=== PATIENT | female | born 1985 | race Caucasian/White ===

== ENCOUNTER 2017-07-01 17:58 | Emergency (ER) | payer OTHER ==
[~2017-07-01] VITALS: Ht 165.1 cm; Wt 49.0 kg
[~2017-07-01 17:58] MED LIST: HYDR-971 PO
--- NOTE | 2017-07-01 18:47 | PHYS DOC ---
Past Medical History Past Medical History: Anxiety, Bipolar, Other Additional Past Medical Histor: PSORIASIS, CHRONIC BACK PAIN Past Surgical History: , Tubal ligation, Other Additional Past Surgical Histo: D&C Additional Information: LESS THAN 1/2 PACK A DAY Alcohol Use: None Drug Use: None Adult General Chief Complaint Chief Complaint: ABDOMINAL PAIN HPI HPI Patient is a 32 year old female who presents with complaints of low abdominal pain that started approximately 3 hours before arrival to the ED. Pain started after she ate a meal sheet I will get better if she slept but he didn't improve so she come to the ER. Patient denies any fevers, chills, rashes, sick contacts , trauma, dysuria symptoms, vaginal discharge. Patient is not in any new medications, denies any drug use. Patient has been her usual state of health up until today. Review of Systems Review of Systems Constitutional: Denies fever or chills [] HENT: Denies pain Respiratory: Denies cough or shortness of breath [] Cardiovascular: No chest pain GI: Denies nausea, vomiting, bloody stools or diarrhea. Yes to low abdominal pain : Denies dysuria or hematuria or vaginal discharge Musculoskeletal: Denies back pain or joint pain [] Integument: Denies rash or skin lesions [] Neurologic: Denies headache, focal weakness or sensory changes [] Current Medications Current Medications Current Medications Medications (Trade) Dose Ordered Sig/Lars Start Time Stop Time Status Last Admin Dose Admin Ketorolac Tromethamine (Toradol) 30 mg 1X ONCE 07/01/17 19:45 07/01/17 19:46 DC 07/01/17 19:49 30 MG Allergies Allergies Allergies Coded Allergies Type Severity Reaction Last Updated Verified Latex, Natural Rubber Allergy Intermediate 12/22/15 Yes Physical Exam Physical Exam Constitutional: Well developed, well nourished, no acute distress, non-toxic appearance. [] HENT: Normocephalic, atraumatic, bilateral external ears normal, oropharynx moist, no oral exudates, nose normal. Poor dentition diffusely Eyes: EOMI, conjunctiva normal, no discharge. [] Neck: Normal range of motion, no tenderness, trachea midline, no stridor. [] Cardiovascular:Heart rate regular rhythm, no murmur, equal pulses, normal perfusion Lungs & Thorax: Bilateral breath sounds clear to auscultation, no tachypnea Abdomen: Bowel sounds normal, soft, no tenderness, no masses, no pulsatile masses. No significant discomfort elicited from a manual exam, no guarding, no rebound Skin: Warm, dry, no erythema, no rash. [] Back: No tenderness, no CVA tenderness. [] Extremities: No tenderness, no cyanosis,, ROM intact, no edema. [] Neurologic: Alert and oriented X 3, normal motor function, no focal deficits noted. [] Psychologic: Affect normal, judgement normal, mood normal. [] Current Patient Data Vital Signs Vital Signs Date Time Temp Pulse Resp B/P (MAP) Pulse Ox O2 Delivery O2 Flow Rate FiO2 07/01/17 19:52 64 18 117/79 (92) 100 Room Air 07/01/17 18:10 98.2 98.2 Lab Values Laboratory Tests Test 07/01/17 18:03 07/01/17 18:15 07/01/17 18:20 Urine Collection Type Void Urine Color Yellow Urine Clarity Clear Urine pH 7.5 Urine Specific [place] 1.020 Urine Protein Negative mg/dL (NEG-TRACE) Urine Glucose (UA) Negative mg/dL (NEG) Urine Ketones (Stick) Negative mg/dL (NEG) Urine Blood Negative (NEG) Urine Nitrite Negative (NEG) Urine Bilirubin Negative (NEG) Urine Urobilinogen Dipstick 0.2 mg/dL (0.2 mg/dL) Urine Leukocyte Esterase Negative (NEG) Urine RBC 0 /HPF (0-2) Urine WBC 1-4 /HPF (0-4) Urine Squamous Epithelial Cells Few /LPF Urine Amorphous Sediment Present /HPF Urine Bacteria Few /HPF (0-FEW) Urine Mucus Slight /LPF Urine Opiates Screen Neg (NEG) Urine Methadone Screen Neg (NEG) Urine Barbiturates Neg (NEG) Urine Phencyclidine Screen Neg (NEG) Urine Amphetamine/Methamphetamine Neg (NEG) Urine Benzodiazepines Screen Neg (NEG) Urine Cocaine Screen Neg (NEG) Urine Cannabinoids Screen Neg (NEG) Urine Ethyl Alcohol Neg (NEG) POC Urine HCG, Qualitative Hcg negative (Negative) White Blood Count 23.5 x10^3/uL (4.0-11.0) H Red Blood Count 4.36 x10^6/uL (3.50-5.40) Hemoglobin 13.4 g/dL (12.0-15.5) Hematocrit 40.6 % (36.0-47.0) Mean Corpuscular Volume 93 fL (79-100) Mean Corpuscular Hemoglobin 31 pg (25-35) Mean Corpuscular Hemoglobin Concent 33 g/dL (31-37) Red Cell Distribution Width 15.8 % (11.5-14.5) H Platelet Count 333 x10^3/uL (140-400) Neutrophils (%) (Auto) 80 % (31-73) H Lymphocytes (%) (Auto) 14 % (24-48) L Monocytes (%) (Auto) 5 % (0-9) Eosinophils (%) (Auto) 0 % (0-3) Basophils (%) (Auto) 1 % (0-3) Neutrophils # (Auto) 18.8 x10^3uL (1.8-7.7) H Lymphocytes # (Auto) 3.3 x10^3/uL (1.0-4.8) Monocytes # (Auto) 1.1 x10^3/uL (0.0-1.1) Eosinophils # (Auto) 0.1 x10^3/uL (0.0-0.7) Basophils # (Auto) 0.2 x10^3/uL (0.0-0.2) Sodium Level 137 mmol/L (136-145) Potassium Level 3.8 mmol/L (3.5-5.1) Chloride Level 101 mmol/L (98-107) Carbon Dioxide Level 26 mmol/L (21-32) Anion Gap 10 (6-14) Blood Urea Nitrogen 8 mg/dL (7-20) Creatinine 0.7 mg/dL (0.6-1.0) Estimated GFR (Cockcroft-Gault) 98.3 BUN/Creatinine Ratio 11 (6-20) Glucose Level 94 mg/dL (70-99) Calcium Level 9.2 mg/dL (8.5-10.1) Total Bilirubin 0.5 mg/dL (0.2-1.0) Aspartate Amino Transferase (AST) 14 U/L (15-37) L Alanine Aminotransferase (ALT) 18 U/L (14-59) Alkaline Phosphatase 61 U/L (46-116) Total Protein 8.0 g/dL (6.4-8.2) Albumin 4.1 g/dL (3.4-5.0) Albumin/Globulin Ratio 1.1 (1.0-1.7) Laboratory Tests 07/01/17 18:20 Laboratory Tests 07/01/17 18:20 Microbiology 07/01/17 Wet Prep - Final, Complete EKG EKG [] Radiology/Procedures Radiology/Procedures [] Course & Med Decision Making Course & Med Decision Making Pertinent Labs and Imaging studies reviewed. (See chart for details) 2107 I have discussed the findings with the patient including the elevated white count. Patient's vital signs at this time are within normal limits, patient still not displaying any signs of a surgical abdomen. Based on the exam and the vital signs are on believed that the patient is in immediate need of imaging or inpatient evaluation at the time of this ED visit. Strict return precautions have been discussed with the patient progress to follow up as directed [] Dragon Disclaimer Dragon Disclaimer This electronic medical record was generated, in whole or in part, using a voice recognition dictation system. Departure Departure Impression: Primary Impression: Pelvic pain Additional Impressions: Abdominal pain Leukocytosis Disposition: 01 HOME, SELF-CARE Condition: STABLE Referrals: NO PCP (PCP) Please follow-up with your doctor or one of the clinics in the list provided to you for recheck and reevaluation in 2 days. If your symptoms worsen or new concerning symptoms develop please return to the ED immediately Patient Instructions: Abdominal Pain (Nonspecific), Leukocytosis, Pelvic Pain, Female, [id number] Scripts Hyoscyamine Sulfate (LEVSIN) 0.125 Mg Tablet 1 TAB PO TID for 7 Days, #21 TAB 1 Refill Prov: Hue KASPER MD 07/01/17 Naproxen (NAPROXEN) 375 Mg Tablet 1 TAB PO TID for 7 Days, #21 TAB 5 Refills Prov: Hue KASPER MD 07/01/17 Problem Qualifiers Hue KASPER MD Jul 01, 2017 18:47
[2017-07-01 18:53] LABS: BASO # 0.2 x10^3/uL (0.0-0.2); BASO % 1 % (0-3); EOS % 0 % (0-3); HEMATOCRIT 40.6 % (36.0-47.0); HEMOGLOBIN 13.4 g/dL (12.0-15.5); LYMPH # 3.3 x10^3/uL (1.0-4.8); LYMPH % 14 % (24-48); MEAN CORPUSCULAR HEMOGLOBIN 31 pg (25-35); MEAN CORPUSCULAR HGB CONC 33 g/dL (31-37); MEAN CORPUSCULAR VOLUME 93 fL (79-100); MONO % 5 % (0-9); NEUT % 80 % (31-73); PLATELET COUNT 333 x10^3/uL (140-400); RED BLOOD COUNT 4.36 x10^6/uL (3.50-5.40); RED CELL DISTRIBUTION WIDTH 15.8 % (11.5-14.5); WHITE BLOOD COUNT 23.5 x10^3/uL (4.0-11.0)
[2017-07-01 19:00] LABS: BARBITURATES NEG (NEG); BENZODIAZEPINES NEG (NEG); CANNABINOIDS NEG (NEG); COCAINE NEG (NEG); METHADONE NEG (NEG); OPIATES NEG (NEG); PHENCYCLIDINE NEG (NEG)
[2017-07-01 19:05] LABS: BILIRUBIN,URINE NEGATIVE (NEG); GLUCOSE,URINE NEGATIVE (NEG); NITRITE,URINE NEGATIVE (NEG); PH,URINE 7.5; PROTEIN,URINE NEGATIVE (NEG-TRACE); UROBILINOGEN,URINE 0.2 mg/dL (0.2 mg/dL)
[2017-07-01 19:11] LABS: CALCIUM 9.2 mg/dL (8.5-10.1); CREATININE 0.7 mg/dL (0.6-1.0); GFR 98.3; POTASSIUM 3.8 mmol/L (3.5-5.1)
[2017-07-01 19:16] LABS: ALBUMIN 4.1 g/dL (3.4-5.0); ALBUMIN/GLOBULIN RATIO 1.1 (1.0-1.7); TOTAL BILIRUBIN 0.5 mg/dL (0.2-1.0)
[2017-07-01 19:19] LABS: BACTERIA,URINE FEW /HPF (0-FEW); RBC,URINE 0 /HPF (0-2); SQUAMOUS EPITHELIAL CELL,UR FEW /LPF
[2017-07-01] MEDS ORDERED: KETOROLAC 30 MG/ML INJ. IV ONE (19:45)
[2017-07-01] MEDS ORDERED: NAPR-695 PO (21:14)
[2017-07-01] MEDS ORDERED: HYOS0.1264 PO (21:14)
[2017-07-01 21:20] VITALS: BP 113/72
== END 2017-07-01 21:29 | disposition home or self-care (01) ==
LOC: ER 17:58
DX: R10.30 Lower abdominal pain, unspecified (principal); D72.829 Elevated white blood cell count, unspecified; R10.2 Pelvic and perineal pain; L40.9 Psoriasis, unspecified; G89.29 Other chronic pain; F31.9 Bipolar disorder, unspecified; F17.200 Nicotine dependence, unspecified, uncomplicated; Z91.040 Latex allergy status
CPT/HCPCS: 36415; 80053; 80307; 81001; 81025; 85025; 87491; 87591; 96374; 99284; J1885; Q0111; G0479

== ENCOUNTER 2017-11-27 13:09 | Emergency (ER) | payer OTHER ==
[2017-11-27 13:39] LABS: URINE HCG POC HCG NEGATIVE (Negative)
[2017-11-27 13:48] LABS: CLARITY,URINE TURBID; COLOR,URINE RED; GLUCOSE,URINE NEGATIVE (NEG); NITRITE,URINE NEGATIVE (NEG); PH,URINE 5.5; PROTEIN,URINE >=300 mg/dL (NEG-TRACE)
[2017-11-27 13:58] LABS: BILIRUBIN,URINE NEGATIVE (NEG)
[2017-11-27 14:00] LABS: UROBILINOGEN,URINE 0.2 mg/dL (0.2 mg/dL)
[2017-11-27 14:01] LABS: BACTERIA,URINE MANY /HPF (0-FEW); RBC,URINE TNTC /HPF (0-2); SQUAMOUS EPITHELIAL CELL,UR MOD /LPF; WBC,URINE TNTC /HPF (0-4)
== END 2017-11-27 14:09 | disposition home or self-care (01) ==
LOC: ER 13:09
DX: N39.0 Urinary tract infection, site not specified (principal); G89.29 Other chronic pain; F10.10 Alcohol abuse, uncomplicated; F31.9 Bipolar disorder, unspecified; Z98.51 Tubal ligation status; Z91.040 Latex allergy status
CPT/HCPCS: 81001; 81025; 87086; 99284

== ENCOUNTER 2018-03-11 16:10 | Emergency (ER) | payer OTHER ==
[2018-03-11 16:40] LABS: URINE HCG POC HCG NEGATIVE (Negative)
[2018-03-11 16:42] LABS: BILIRUBIN,URINE NEGATIVE (NEG); CLARITY,URINE CLEAR; COLOR,URINE YELLOW; GLUCOSE,URINE NEGATIVE (NEG); NITRITE,URINE NEGATIVE (NEG); PH,URINE 5.5; PROTEIN,URINE NEGATIVE (NEG-TRACE); UROBILINOGEN,URINE 0.2 mg/dL (0.2 mg/dL)
[2018-03-11 17:03] LABS: BACTERIA,URINE FEW /HPF (0-FEW); RBC,URINE >40 /HPF (0-2); SQUAMOUS EPITHELIAL CELL,UR FEW /LPF
[2018-03-11] MEDS: ONDANSETRON PF 4 MG/2 ML VIAL. IV (17:06)
[2018-03-11] MEDS: IV NORMAL SALINE 1000ML BAG 1,000 ML IV ×2 (17:07→18:11)
[2018-03-11 17:15] LABS: ADD MAN DIFF? NO
[2018-03-11 17:16] LABS: BASO # 0.1 x10^3/uL (0.0-0.2); BASO % 1 % (0-3); EOS % 0 % (0-3); HEMATOCRIT 36.7 % (36.0-47.0); HEMOGLOBIN 12.5 g/dL (12.0-15.5); LYMPH # 1.3 x10^3/uL (1.0-4.8); LYMPH % 7 % (24-48); MEAN CORPUSCULAR HEMOGLOBIN 30 pg (25-35); MEAN CORPUSCULAR HGB CONC 34 g/dL (31-37); MEAN CORPUSCULAR VOLUME 90 fL (79-100); MONO # 0.5 x10^3/uL (0.0-1.1); MONO % 3 % (0-9); NEUT # 16.7 x10^3uL (1.8-7.7); NEUT % 89 % (31-73); PLATELET COUNT 167 x10^3/uL (140-400); RED BLOOD COUNT 4.09 x10^6/uL (3.50-5.40); RED CELL DISTRIBUTION WIDTH 17.3 % (11.5-14.5); WHITE BLOOD COUNT 18.7 x10^3/uL (4.0-11.0)
[2018-03-11 17:26] LABS: ANION GAP 19 (6-14); BLOOD UREA NITROGEN 7 mg/dL (7-20); BUN/CREATININE RATIO 12 (6-20); CALCIUM 9.1 mg/dL (8.5-10.1); CARBON DIOXIDE 21 mmol/L (21-32); CHLORIDE 94 mmol/L (98-107); CREATININE 0.6 mg/dL (0.6-1.0); GFR 117.4; GLUCOSE 72 mg/dL (70-99); POTASSIUM 3.7 mmol/L (3.5-5.1); SODIUM 134 mmol/L (136-145)
[2018-03-11 17:32] LABS: ALBUMIN 4.2 g/dL (3.4-5.0); ALBUMIN/GLOBULIN RATIO 1.2 (1.0-1.7); ALK PHOS 69 U/L (46-116); ALT (SGPT) 37 U/L (14-59); AST (SGOT) 80 U/L (15-37); LIPASE 155 U/L (73-393); TOTAL BILIRUBIN 1.4 mg/dL (0.2-1.0); TOTAL PROTEIN 7.8 g/dL (6.4-8.2)
[2018-03-11 18:01] LABS: CREATINE KINASE 189 U/L (26-192)
== END 2018-03-11 19:50 | disposition home or self-care (01) ==
LOC: ER 16:10
DX: R11.2 Nausea with vomiting, unspecified (principal); F41.9 Anxiety disorder, unspecified; F31.9 Bipolar disorder, unspecified; F10.20 Alcohol dependence, uncomplicated; Z98.890 Other specified postprocedural states; Z98.51 Tubal ligation status; Z91.040 Latex allergy status
CPT/HCPCS: 36415; 80053; 81001; 81025; 82550; 83690; 85025; 96361; 96374; 96375; 99285-25; J2060; J2405; J7030

== ENCOUNTER 2019-05-26 15:48 | Emergency (ER) | payer OTHER ==
[~2019-05-26] VITALS: Ht 165.1 cm; Wt 55.8 kg
[~2019-05-26 15:48] MED LIST changes: +HYDR-3164 PO; -HYDR-971 PO; +HYOS0.1264 PO; +NAPR-695 PO; +SULF1TAB24 PO
[2019-05-26 15:57] VITALS: BP 156/78
--- NOTE | 2019-05-26 16:10 | PHYS DOC ---
Past Medical History Past Medical History: Anxiety, Bipolar, Other Additional Past Medical Histor: PSORIASIS, CHRONIC BACK PAIN Past Surgical History: , Tubal ligation, Other Additional Past Surgical Histo: D&C Alcohol Use: Heavy Drug Use: None Adult General Chief Complaint Chief Complaint: WRIST PAIN [facility] HPI Patient is a 34 year old female presents to the ED complaining of left wrist injury times one day ago. States she tripped and fell landing on her left wrist. Describes the pain as sharp. Rates the pain as 7 out of 10. Patient has pain with range of motion. History of old fracture many years ago. Denies head/neck injury, LOC, vision changes, nausea/vomiting, dizziness, weakness, chest pain or shortness of breath. Review of Systems Review of Systems Constitutional: Denies fever or chills [] Eyes: Denies change in visual acuity, redness, or eye pain [] HENT: Denies nasal congestion or sore throat [] Respiratory: Denies cough or shortness of breath [] Cardiovascular: No additional information not addressed in HPI [] GI: Denies abdominal pain, nausea, vomiting, bloody stools or diarrhea [] : Denies dysuria or hematuria [] Musculoskeletal: Complains of left wrist pain. Denies back pain. Integument: Denies rash or skin lesions [] Neurologic: Denies headache, focal weakness or sensory changes [] All other systems were reviewed and found to be within normal limits, except as documented in this note. Allergies Allergies Allergies Coded Allergies Type Severity Reaction Last Updated Verified Latex, Natural Rubber Allergy Intermediate 12/22/15 Yes Physical Exam Physical Exam Constitutional: Well developed, well nourished, no acute distress, non-toxic appearance. [] HENT: Normocephalic, atraumatic Skin: Warm, dry, no erythema, no rash. [] Back: No tenderness, no CVA tenderness. [] Extremities: mild left wrist tenderness, no swelling or snuffbox tenderness. no cyanosis, no clubbing, ROM intact, no edema. [] Neurologic: Alert and oriented X 3, normal motor function, normal sensory function, no focal deficits noted. [] Psychologic: Affect normal, judgement normal, mood normal. [] Current Patient Data Vital Signs Vital Signs Date Time Temp Pulse Resp B/P (MAP) Pulse Ox O2 Delivery O2 Flow Rate FiO2 05/26/19 15:57 99.2 86 14 156/78 (104) 99 Room Air 99.2 EKG EKG [] Radiology/Procedures Radiology/Procedures []PROCEDURE: WRIST 3V LEFT EXAM: Left wrist, 3 views. HISTORY: Trauma. COMPARISON: None. FINDINGS: 3 views of the left wrist are obtained. There is a tiny ossicle adjacent to the ulnar styloid, likely developmental or the sequela of remote fracture. There is a bone island within the distal radial metaphysis. No acute fracture is seen. IMPRESSION: No acute osseous finding. Course & Med Decision Making Course & Med Decision Making Pertinent Labs and Imaging studies reviewed. (See chart for details) []Discussed imaging findings with patient. Patients pain improved in the ED. No acute fracture seen. Discussed symptomatic treatment and follow-up with orthopedics if pain persists. Provided contact information/education. Discussed reasons to return to the ED. Patient understands and agrees with plan. Dragon Disclaimer Dragon Disclaimer This electronic medical record was generated, in whole or in part, using a voice recognition dictation system. Departure Departure Impression: Primary Impression: Wrist sprain Disposition: 01 HOME, SELF-CARE Condition: IMPROVED Referrals: PIERO LINN MD (PCP) Patient Instructions: Joint Sprain MINGO CAREY May 26, 2019 16:10
--- NOTE | 2019-05-26 16:53 | RAD ---
EXAM: Left wrist, 3 views. HISTORY: Trauma. COMPARISON: None. FINDINGS: 3 views of the left wrist are obtained. There is a tiny ossicle adjacent to the ulnar styloid, likely developmental or the sequela of remote fracture. There is a bone island within the distal radial metaphysis. No acute fracture is seen. IMPRESSION: No acute osseous finding. Electronically signed by: Natali Rand MD (05/26/2019 4:50 PM) [facility]
== END 2019-05-26 17:22 | disposition home or self-care (01) ==
LOC: ER 15:48
DX: S63.592A Other specified sprain of left wrist, initial encounter (principal); F10.20 Alcohol dependence, uncomplicated; Y90.9 Presence of alcohol in blood, level not specified; F41.9 Anxiety disorder, unspecified; F31.9 Bipolar disorder, unspecified; G89.29 Other chronic pain; Z98.890 Other specified postprocedural states; Z98.51 Tubal ligation status; Z91.040 Latex allergy status; W01.0XXA Fall on same level from slipping, tripping and stumbling without subsequent striking against object, initial encounter; Y93.89 Activity, other specified; Y92.89 Other specified places as the place of occurrence of the external cause; Y99.8 Other external cause status
CPT/HCPCS: 73110; 99284

== ENCOUNTER 2019-11-02 13:28 | Emergency (ER) | payer OTHER ==
[~2019-11-02] VITALS: Ht 162.6 cm; Wt 48.0 kg
[2019-11-02 13:50] VITALS: BP 132/76
[2019-11-02] MEDS ORDERED: PENI500T PO (14:35)
[2019-11-02] MEDS ORDERED: HYDR-3164 PO (14:35)
[2019-11-02] MEDS ORDERED: CHLO15MO2 PO (14:35)
--- NOTE | 2019-11-02 14:35 | PHYS DOC ---
Past Medical History Past Medical History: Anxiety, Bipolar, Other Additional Past Medical Histor: PSORIASIS, CHRONIC BACK PAIN Past Surgical History: , Tubal ligation, Other Additional Past Surgical Histo: D&C Smoking Status: Current Every Day Smoker Alcohol Use: Heavy Drug Use: None Adult General Chief Complaint Chief Complaint: DENTAL PROBLEM HPI HPI Patient is a 34 year old female who presents with patient went to [facility] and had 4 upper teeth removed removed on the right upper back. She states that she does not have another appointment on November 10 cannot get in any sooner. She states that this was about 4 days ago and she's having continuous pain. She states she's taken all for hydrocodone's. She rates her pain 9 out of 10. Review of Systems Review of Systems HENT: Denies nasal congestion or sore throat. Dental pain post removal of teeth. [] All other systems were reviewed and found to be within normal limits, except as documented in this note. Allergies Allergies Allergies Coded Allergies Type Severity Reaction Last Updated Verified Latex, Natural Rubber Allergy Intermediate 12/22/15 Yes Physical Exam Physical Exam Constitutional: Well developed, well nourished, no acute distress, non-toxic appearance. [] HENT: Normocephalic, atraumatic, bilateral external ears normal, oropharynx moist, no oral exudates, nose normal. Gumline inflammation and tenderness per post dental teeth removal. [] Eyes: PERRLA, EOMI, conjunctiva normal, no discharge. [] Neck: Normal range of motion, no tenderness, supple, no stridor. [] Cardiovascular:Heart rate regular rhythm, no murmur [] Lungs & Thorax: Bilateral breath sounds clear to auscultation [] Abdomen: Bowel sounds normal, soft, no tenderness, no masses, no pulsatile masses. [] Skin: Warm, dry, no erythema, no rash. [] Back: No tenderness, no CVA tenderness. [] Extremities: No tenderness, no cyanosis, no clubbing, ROM intact, no edema. [] Neurologic: Alert and oriented X 3, normal motor function, normal sensory function, no focal deficits noted. [] Psychologic: Affect normal, judgement normal, mood normal. [] Current Patient Data Vital Signs Vital Signs Date Time Temp Pulse Resp B/P (MAP) Pulse Ox O2 Delivery O2 Flow Rate FiO2 11/02/19 13:50 98.2 90 14 132/76 (94) 100 Room Air 98.2 EKG EKG [] Radiology/Procedures Radiology/Procedures [] Course & Med Decision Making Course & Med Decision Making Pertinent Labs and Imaging studies reviewed. (See chart for details) Alert and oriented. Speaks in full clear senses. Vital signs within normal limits. Afebrile. Upon examination there is no blood clots in the sockets within the gumline where the 4 teeth were pulled that there is complaining inflammation but there is no drainage. There is tenderness. Patient states she's been following the directions appropriately and she's been doing salt water rinses 7 times a day. And they told her to also use mouthwash. And has many dental caries and rotting teeth. She has many missing teeth. Patient has a possible dry socket. Patient is educated that she needs to get in to see [facility] sooner. She is given antibiotic and pain medicine and Peridex. Dragon Disclaimer Dragon Disclaimer This electronic medical record was generated, in whole or in part, using a voice recognition dictation system. Departure Departure Impression: Primary Impression: Pain, dental Disposition: 01 HOME, SELF-CARE Condition: STABLE Referrals: KATIA MCKEON MD (PCP) Patient Instructions: Dental Dry Socket, [id number], Dental Pain Additional Instructions: Follow up with dentist as soon as possible. Take medication as prescribed. Continue salt water rinses. Scripts Chlorhexidine Gluconate (PERIDEX) 15 Ml Mouthwash 15-30 ML PO TID for 8 Days, #473 ML 0 Refills Prov: COSMO HOOK APRN 11/02/19 Penicillin V Potassium (PENICILLIN V POTASSIUM) 500 Mg Tablet 1 TAB PO QID, #40 TAB Prov: COSMO HOOK APRN 11/02/19 Hydrocodone/Apap 5-325 (NORCO 5-325 TABLET) 1 Each Tablet 1 TAB PO PRN Q6HRS PRN for PAIN, #10 TAB 0 Refills Prov: COSMO HOOK APRN 11/02/19 COSMO HOOK APRN Nov 02, 2019 14:35
== END 2019-11-02 14:44 | disposition home or self-care (01) ==
LOC: ER 13:28
DX: K08.89 Other specified disorders of teeth and supporting structures (principal); K05.10 Chronic gingivitis, plaque induced; F31.9 Bipolar disorder, unspecified; G89.29 Other chronic pain; L40.9 Psoriasis, unspecified; F17.200 Nicotine dependence, unspecified, uncomplicated; Z91.040 Latex allergy status
CPT/HCPCS: 99283

== ENCOUNTER 2019-11-08 11:10 | Emergency (ER) | payer OTHER ==
[~2019-11-08] VITALS: Ht 162.6 cm; Wt 48.9 kg
[~2019-11-08 11:10] MED LIST changes: +CHLO15MO2 PO; +PENI500T PO
[2019-11-08 11:30] VITALS: BP 149/88
--- NOTE | 2019-11-08 11:48 | PHYS DOC ---
Past Medical History Past Medical History: Anxiety, Bipolar, Other Additional Past Medical Histor: PSORIASIS, CHRONIC BACK PAIN Past Surgical History: , Tubal ligation, Other Additional Past Surgical Histo: D&C Smoking Status: Current Every Day Smoker Alcohol Use: Heavy Drug Use: None Adult General Chief Complaint Chief Complaint: DENTAL PROBLEM HPI HPI Patient is a 34 year old female who presents with was here on Saturday and diagnosed with a dry socket in her back upper gum line. The surgery was done a week and a half ago. She has been calling her dentist who states he can not see her until saturday. Patient was given antibiotic and still has been taking the medications. She states the pain continues. Patient is told that we do not have dental here in the ED. She rates pain 8 out of 10. She denies fever, nausea, vomiting, body aches, facial pain. Review of Systems Review of Systems HENT: Denies nasal congestion or sore throat. Right upper back dry socket. [] All other systems were reviewed and found to be within normal limits, except as documented in this note. Current Medications Current Medications Current Medications Medications (Trade) Dose Ordered Sig/Lars Start Time Stop Time Status Last Admin Dose Admin Lidocaine HCl (Lidocaine Pf 2% Vial) 5 ml 1X ONCE 11/08/19 12:00 11/08/19 12:01 DC 11/08/19 12:09 5 ML Allergies Allergies Allergies Coded Allergies Type Severity Reaction Last Updated Verified Latex, Natural Rubber Allergy Intermediate 12/22/15 Yes Physical Exam Physical Exam Constitutional: Well developed, well nourished, no acute distress, non-toxic appearance. [] HENT: Normocephalic, atraumatic, bilateral external ears normal, oropharynx moist, no oral exudates, nose normal. Right upper back dry socket. [] Eyes: PERRLA, EOMI, conjunctiva normal, no discharge. [] Neck: Normal range of motion, no tenderness, supple, no stridor. [] Cardiovascular:Heart rate regular rhythm, no murmur [] Lungs & Thorax: Bilateral breath sounds clear to auscultation [] Abdomen: Bowel sounds normal, soft, no tenderness, no masses, no pulsatile masses. [] Skin: Warm, dry, no erythema, no rash. [] Back: No tenderness, no CVA tenderness. [] Extremities: No tenderness, no cyanosis, no clubbing, ROM intact, no edema. [] Neurologic: Alert and oriented X 3, normal motor function, normal sensory function, no focal deficits noted. [] Psychologic: Affect normal, judgement normal, mood normal. [] Current Patient Data Vital Signs Vital Signs Date Time Temp Pulse Resp B/P (MAP) Pulse Ox O2 Delivery O2 Flow Rate FiO2 11/08/19 11:30 96.0 87 16 149/88 (108) 100 Room Air 96.0 EKG EKG [] Radiology/Procedures Radiology/Procedures [] Course & Med Decision Making Course & Med Decision Making Pertinent Labs and Imaging studies reviewed. (See chart for details) I have spoken to Dr. Sprague about this patient and he states to get iodoform and soak it in lidocaine 2% and pack the dry socket. Patient is to call her dentist or go to [facility] tomorrow for care. Patient states she has not been smoking, using a straw, drinking carbonated fluids care. She states she still been using the Peridex I gave her. No infection is seen. Actually upon examination the surgical site is looking better and it is healing nicely. No facial swelling or signs of infection. The gum line swelling has gone done. I have attempted to pack the socket with lidocaine socked iodaform but it would not stay in the socket. Patient follow-up with dentist. [] Dragon Disclaimer Dragon Disclaimer This electronic medical record was generated, in whole or in part, using a voice recognition dictation system. Departure Departure Impression: Primary Impression: Pain, dental Disposition: HOME, SELF-CARE Condition: STABLE Referrals: KATIA MCKEON MD (PCP) Patient Instructions: Dental Dry Socket Additional Instructions: Follow up with Dentist as soon as possible. Keep your saturday appointment if you can not get in to see your dentist sooner. Continue antibiotics. Scripts Hydrocodone/Apap 5-325 (NORCO 5-325 TABLET) 1 Each Tablet 1 TAB PO PRN Q6HRS PRN for PAIN, #6 TAB 0 Refills Prov: COSMO HOOK APRN 11/08/19 COSMO HOOK [employer] Nov 08, 2019 11:48
[2019-11-08] MEDS ORDERED: LIDOCAINE 2% PF 5 ML VIAL. INJ ONE (12:00)
[2019-11-08] MEDS ORDERED: HYDR-3164 PO (12:56)
[2019-11-08] MEDS ORDERED: HYDROcodone/APAP 5/325MG 1 TAB TABLET PO ONE (13:00)
== END 2019-11-08 13:00 | disposition home or self-care (01) ==
LOC: ER 11:10
DX: K08.89 Other specified disorders of teeth and supporting structures (principal); F31.9 Bipolar disorder, unspecified; L40.9 Psoriasis, unspecified; F17.200 Nicotine dependence, unspecified, uncomplicated; F10.20 Alcohol dependence, uncomplicated; Y90.9 Presence of alcohol in blood, level not specified
CPT/HCPCS: 96372; 99283; J2001

== ENCOUNTER 2019-11-30 10:51 | Emergency (ER) | payer OTHER ==
[~2019-11-30] VITALS: Ht 162.6 cm; Wt 49.5 kg
[2019-11-30 11:34] VITALS: BP 112/71
[2019-11-30] MEDS ORDERED: METH4TAB2 PO (12:05)
[2019-11-30] MEDS ORDERED: CYCL10TA2 PO (12:05)
[2019-11-30] MEDS ORDERED: DICL50TA2 PO (12:05)
--- NOTE | 2019-11-30 12:06 | PHYS DOC ---
Past Medical History Past Medical History: Anxiety, Bipolar, Other Additional Past Medical Histor: PSORIASIS, CHRONIC BACK PAIN (YASMANI DOSHI APRN) Past Surgical History: , Tubal ligation, Other Additional Past Surgical Histo: D&C (YASMANI DOSHI APRN) Smoking Status: Current Every Day Smoker Alcohol Use: Occasionally Drug Use: None (YASMANI DOSHI APRN) Adult General Chief Complaint Chief Complaint: LOWER BACK PAIN OR INJURY HPI HPI Patient is a 34 year old female with history of anxiety, chronic low back pain who presents to the ED today complaining of low back pain rated at 8 out of 10 described as sharp and constant. Patient initially had checked in to be seen for dental pain, when she was given a dental list to follow-up as an outpatient she changed her complaint of chronic back pain, when I went to see the patient, she changed the story to back pain from a fall yesterday. Patient denies any loss of consciousness when she fell. Denies any loss of bowel/bladder function. She states she has an appointment with a spine doctor on December 09, 2019. (YASMANI DOSHI APRN) Review of Systems Review of Systems Constitutional: Denies fever or chills [] : Denies dysuria or hematuria [] Musculoskeletal: Reports low back pain Integument: Denies rash or skin lesions [] Neurologic: Denies headache, focal weakness or sensory changes [] All other systems were reviewed and found to be within normal limits, except as documented in this note. (YASMANI DOSHI APRN) Allergies Allergies Allergies Coded Allergies Type Severity Reaction Last Updated Verified Latex, Natural Rubber Allergy Intermediate 12/22/15 Yes (TONI DUMONT DO) Physical Exam Physical Exam Constitutional: Well developed, well nourished, no acute distress, non-toxic appearance. [] Abdomen: Bowel sounds normal, soft, no tenderness, no masses, no pulsatile masses. [] Skin: Warm, dry, no erythema, no rash. [] Back: No tenderness, no CVA tenderness. [] Extremities: No tenderness, no cyanosis, no clubbing, ROM intact, no edema. [] Neurologic: Alert and oriented X 3, normal motor function, normal sensory function, no focal deficits noted. [] Psychologic: Affect normal, judgement normal, mood normal. [] (YASMANI DOSHI APRN) Current Patient Data Vital Signs Vital Signs Date Time Temp Pulse Resp B/P (MAP) Pulse Ox O2 Delivery O2 Flow Rate FiO2 11/30/19 11:34 99.2 95 18 112/71 (85) 100 Room Air 99.2 (TONI DUMONT DO) EKG EKG [] (YASMANI DOSHI APRN) Radiology/Procedures Radiology/Procedures [] (YASMANI DOSHI APRN) Course & Med Decision Making Course & Med Decision Making Pertinent Labs and Imaging studies reviewed. (See chart for details) This is a 34-year-old female patient who presents to the ED today complaining of low back pain. See history of present illness. Patient has changed her story 3 times since she came to the ED. She initially had checked in for dental pain, was given a dental clinic list to follow-up as an outpatient, she changed her complaint of chronic back pain, when I went to see patient she changed her complaint to back pain from falling. I offered patient a lumbar x-ray she declined stating she does not think anything is wrong but states she ran out of Harman. I informed her she will not get any narcotics from our Ed because they are not indicated for back pain or dental pain and we have to help fight addiction [place]. Also off note [facility] shows patient has filled multiple rx of narcotics including 30 days of Tramadol 11/17/2019, Harman 11/14/2019 among other Narcotic rx. Offered patient diclofenac, Medrol Dosepak and cyclobenzaprine. Discharged to home. She states she has an appointment with a spine doctor on December 09, 2019. She has no cauda equina symptoms. (YASMANI DOSHI APRN) Dragon Disclaimer Dragon Disclaimer This electronic medical record was generated, in whole or in part, using a voice recognition dictation system. (YASMANI DOSHI APRN) Attending Signature I have participated in the care of this patient and I have reviewed and agree with all pertinent clinical information above including history, exam, and recommendations. (TONI DUMONT DO) Departure Departure Impression: Primary Impression: Back pain Additional Impression: Fall Disposition: 01 HOME, SELF-CARE Condition: STABLE Referrals: KATIA MCKEON MD (PCP) follow up with your doctor in 1-2 weeks Patient Instructions: Back Pain, Adult, [id number] Additional Instructions: You were elevated in the emergency room for back pain. Please follow-up with the spine doctor/ your priry care doctor as soon as possible. Try to ice and elevate the affected region. Scripts Diclofenac Potassium (DICLOFENAC POTASSIUM) 50 Mg Tablet 1 TAB PO BID, #20 TAB 1 Refill Prov: YASMANI DOSHI UPTWIST SPINNER 11/30/19 Cyclobenzaprine Hcl (CYCLOBENZAPRINE HCL) 10 Mg Tablet 1 TAB PO TID, #30 TAB Prov: YASMANI DOSHI UPTWIST SPINNER 20 Methylprednisolone (MEDROL) 4 Mg Tab.ds.pk 1 PKG PO UD, #1 PKG Prov: YASMANI DOSHI UPTWIST SPINNER 20 Problem Qualifiers Primary Impression: Back pain Back pain location: low back pain Chronicity: chronic Back pain laterality: bilateral Sciatica presence: without sciatica Qualified Codes: M54.5 - Low back pain; G89.29 - Other chronic pain Additional Impression: Fall Encounter type: initial encounter Qualified Codes: W19.XXXA - Unspecified fall, initial encounter YASMANI DOSHI RADHA Nov 30, 2019 12:06 TONI DUMONT DO Dec 01, 2019 07:30
== END 2019-11-30 12:12 | disposition home or self-care (01) ==
LOC: ER 10:51
DX: G89.29 Other chronic pain (principal); M54.5 Low back pain; G89.11 Acute pain due to trauma; F31.9 Bipolar disorder, unspecified; Z98.51 Tubal ligation status; F17.200 Nicotine dependence, unspecified, uncomplicated; Z91.040 Latex allergy status; W18.39XA Other fall on same level, initial encounter; Y93.89 Activity, other specified; Y92.89 Other specified places as the place of occurrence of the external cause; Y99.8 Other external cause status
CPT/HCPCS: 99283; 99284

== ENCOUNTER 2021-03-17 19:31 | Emergency (ER) | payer OTHER ==
[~2021-03-17] VITALS: Ht 161.3 cm; Wt 54.5 kg
[~2021-03-17 19:31] MED LIST changes: +CYCL10TA2 PO; +DICL50TA2 PO; +METH4TAB2 PO
[2021-03-18] MEDS ORDERED: CYCL10TA2 PO (01:11)
--- NOTE | 2021-03-18 01:11 | PHYS DOC ---
Past Medical History Past Medical History: Anxiety, Bipolar, Other Additional Past Medical Histor: PSORIASIS, CHRONIC BACK PAIN Past Surgical History: , Tubal ligation, Other Additional Past Surgical Histo: D&C Smoking Status: Current Every Day Smoker Alcohol Use: Occasionally Drug Use: None General Adult EDM: Chief Complaint: MECHANICAL FALL HPI: HPI: 35 yo F chronic back pain, psoriasis and bipolar disorder, presents the ED with complaints of left extremity pain and left upper back pain after tripping over her dog at home. Patient states she landed on her left side with her elbow flexed underneath her. She did not hit her head or lose consciousness. Is not on any anticoagulants. Reports Tylenol and ibuprofen are not helping. States she went to work after falling. Denies any prior head or neck injury. No associated loss of consciousness. No prior injury to this extremity. Landed on a "thin carpeted" floor. Review of Systems: Review of Systems: Constitutional: Denies fever or chills. [] Eyes: Denies change in visual acuity. [] HENT: Denies nasal congestion or sore throat. [] Respiratory: Denies cough or shortness of breath. [] Cardiovascular: Denies chest pain or syncope GI: Denies nausea, vomiting : Denies dysuria or vaginal bleeding Musculoskeletal: Denies CVA tenderness or joint pain. [] Integument: Denies diaphoresis or blistering lesions Neurologic: Denies headache or midline neck pain Psychiatric: Denies depression or anxiety. [] Heart Score: C/O Chest Pain: No Risk Factors: Risk Factors: DM, Current or recent (<one month) smoker, HTN, HLP, family history of CAD, obesity. Risk Scores: Score 0 - 3: 2.5% MACE over next 6 weeks - Discharge Home Score 4 - 6: 20.3% MACE over next 6 weeks - Admit for Clinical Observation Score 7 - 10: 72.7% MACE over next 6 weeks - Early Invasive Strategies Allergies: Allergies: Allergies Coded Allergies Type Severity Reaction Last Updated Verified Latex, Natural Rubber Allergy Intermediate 12/22/15 Yes Physical Exam: PE: Constitutional: no acute distress, non-toxic appearance. HENT: Normocephalic, atraumatic, slightly dry mucous membranes Eyes: EOMI, conjunctiva normal, no discharge. Neck: No midline neck pain or step-offs, normal range of motion, supple, pain over left upper back over the trapezius muscle Cardiovascular: S1/2 present, 86 hr in ed room Lungs & Thorax: Speaking in full sentences, bilateral equal chest rise, no tachypnea or increased work of breathing Skin: Warm, dry, psoriatic rash over chest/back/extremities Back: No midline step offs or tenderness, no CVA tenderness. [] Extremities: Equal radial pulses bilaterally, no tenderness, no cyanosis, left shoulder/elbow/wrist/hand with full range of motion, median/ulnar/radial nerve sensation intact on left, equal muscle strength to both extremities Neurologic: Alert and oriented X 3, no focal deficits noted. [] Psychologic: Affect normal, judgement normal, mood normal. [] Current Patient Data: Labs: Laboratory Tests Test 03/17/21 21:15 POC Urine HCG, Qualitative Hcg negative (Negative) Vital Signs: Vital Signs Date Time Temp Pulse Resp B/P (MAP) Pulse Ox O2 Delivery O2 Flow Rate FiO2 03/18/21 00:40 97.7 130 131/99 (111) 94 Room Air 97.7 03/17/21 19:36 20 EKG: EKG: [] Radiology/Procedures: Radiology/Procedures: [] Course & Med Decision Making: Course & Med Decision Making Pertinent Labs and Imaging studies reviewed. (See chart for details) Concern for accidental fall in a well-appearing female with decision-making capacity, suspect musculoskeletal strain/soft tissue injury. Is Nexus cleared. Is no signs of head trauma. Extremity with no deformities, bruising or decreased range of motion. Patient neuro vascularly intact. Will prescribe muscle relaxers. Will discharge home with strict ED return precautions were given for repeat injury, severe headache, neck pain, weakness or severe pain. Encouraged urgent outpatient follow-up with PMD. Life-threatening processes were considered but are low suspicion at this time, given history, physical exam and ED workup. Pt was educated on all prescription medications and adverse effects. All patient's questions were answered and pt was stable at time of discharge. Life/limb-threatening differential includes but is not limited to, trauma (fracture, dislocation, laceration, compartment syndrome, tendon or ligament injury), neurovascular injury or deficitcva/tia, infection (osteomyelitis, abscess, cellulitis, septic arthritis, necrotizing fasciitis), deep vein thrombosis, renal/cardiac/liver disease, medication adverse effect, lymphedema/anasarca, vascular insufficiency or malignancy, I have spoken with the patient and/or caregivers. I explained the patient's condition, diagnoses and treatment plan based on the information available to me at this time. I have answered the patient and/or caregiver's questions and addressed any concerns. The patient and/or caregivers have a good understanding of patient's diagnosis, condition and treatment plan as can be expected at this point. Vital signs have been stable. Patient's condition is stable and appropriate for discharge from the emergency department. Patient will pursue further outpatient evaluation with primary care physician or other designated or consulting physician as outlined in the discharge instructions. The patient and/or caregivers are agreeable to this plan of care and follow-up instructions have been explained in detail. The patient and/or caregivers have received these instructions in written form and have expressed an understanding of the discharge instructions. The patient and/or caregivers are aware that any significant change of condition or worsening of symptoms should prompt immediate return to this or the closest emergency department or call to 911. Criselda Disclaimer: Criselda Disclaimer: This electronic medical record was generated, in whole or in part, using a voice recognition dictation system. Departure Departure Impression: Primary Impression: Left arm pain Additional Impressions: Fall Upper back pain on left side Disposition: 01 HOME / SELF CARE / HOMELESS Condition: STABLE Referrals: KATIA MCKEON MD (PCP) Follow-up with your primary care physician in 2 to 3 days for reevaluation Patient Instructions: Fall Prevention and Home Safety, Musculoskeletal Pain Additional Instructions: EMERGENCY DEPARTMENT GENERAL DISCHARGE INSTRUCTIONS Thank you for coming to [facility] Emergency Department (ED) today and trusting us with you care. We trust that you had a positive experience in our Emergency Department. If you wish to speak to the department management, you may call the Director at [phone]. YOUR FOLLOW UP INSTRUCTIONS ARE FOLLOWS: 1. Do you have a private Doctor? If you do not have a private doctor, please ask for a resource list of physicians or clinics that may be able to assist you with follow up care. 2. The Emergency Physicain has interpreted your x-rays. The X-Ray specialist will also review them. If there is a change in the findings, you will be notified in 48 hours when at all possible. 3. A lab test or culture has been done, your results will be reviewed and you will be notified if you need a change in treatment. ADDITIONAL INSTRUCTIONS AND INFORMATION: 1. Your care today has been supervised by a physician who is specially trained in emergency care. Many problems require more than one evaluation for a complete diagnosis and treatment. We recommend that you schedule your follow up appointment as recommended to ensure complete treatment of you illness or injury. If you are unable to obtain follow up care and continue to have a problem, or if your condition worsens, we recommend that you return to the ED. 2. We are not able to safely determine your condition over the phone nor are we able to give sound medical advice over the phone. For these safety reasons, if you call for medical advice we will ask you to come to the ED for further evaluation. 3. If you have any questions regarding these discharge instructions please call the ED at [phone]. SAFETY INFORMATION: In the interest of safety, wellness, and injury prevention; we encourage you to wear your sealbelt, if you smoke; quite smoking, and we encourage family to use a protective helmet for bicycling and other sporting events that present an increased risk for head injury. IF YOUR SYMPTOMS WORSEN OR NEW SYMPTOMS DEVELOP, OR YOU HAVE CONCERNS ABOUT YOUR CONDITION; OR IF YOUR CONDITION WORSENS WHILE YOU ARE WAITING FOR YOUR FOLLOW UP APPOINTMENT; EITHER CONTACT YOUR PRIMARY CARE DOCTOR, THE PHYSICIAN WHOSE NAME AND NUMBER YOU WERE GIVEN, OR RETURN TO THE ED IMMEDIATELY. Scripts Cyclobenzaprine Hcl (CYCLOBENZAPRINE HCL) 10 Mg Tablet 1 TAB PO TID, #21 TAB Prov: KATHRYN NASH DO 03/18/21 KATHRYN NASH DO Mar 18, 2021 01:11
[2021-03-18 01:40] VITALS: BP 138/78
== END 2021-03-18 01:53 | disposition home or self-care (01) ==
LOC: ER 19:31
DX: M79.602 Pain in left arm (principal); M54.6 Pain in thoracic spine; F31.9 Bipolar disorder, unspecified; G89.29 Other chronic pain; F17.200 Nicotine dependence, unspecified, uncomplicated; Z98.51 Tubal ligation status; L40.9 Psoriasis, unspecified; Z91.040 Latex allergy status; G89.11 Acute pain due to trauma; W01.0XXA Fall on same level from slipping, tripping and stumbling without subsequent striking against object, initial encounter; Y93.89 Activity, other specified; Y92.098 Other place in other non-institutional residence as the place of occurrence of the external cause; Y99.8 Other external cause status
CPT/HCPCS: 81025; 99285-25